=== PATIENT | female | born 1980 | race Caucasian/White ===

== ENCOUNTER 2016-10-12 15:23 | Emergency (ER) | payer OTHER ==
[2016-10-12 16:16] LABS: BASO % 0.6 % (0.1-1.2); EOS # 0.3 10_X3_uL (0.0-0.4); EOS % 4.3 % (0.7-5.8); GRAN # 3.5 10_X3_uL (1.6-6.1); GRAN % 52.1 % (34.0-71.1); HEMATOCRIT 41.3 % (34-45); HEMOGLOBIN 14.4 g/dL (11.2-15.7); LYMPH # 2.2 10_X3_uL (1.2-3.7); LYMPH % 31.8 % (19.3-51.7); MEAN CORPUSCULAR HEMOGLOBIN 32.7 pg (27.0-33.0); MEAN CORPUSCULAR HGB CONC 34.9 g/dL (32.0-36.0); MEAN CORPUSCULAR VOLUME 93.9 fL (79-95); MEAN PLATELET VOLUME 9.4 fl (7.5-11.5); MONO # 0.8 10_X3_uL (0.2-0.9); MONO % 11.2 % (4.7-12.5); PLATELET COUNT 290 x10_3/uL (182-369); RED CELL DISTRIBUTION WIDTH 12.6 % (11.7-14.4); WHITE BLOOD COUNT 6.8 x10_3/uL (4.0-10.0)
[2016-10-12 16:29] LABS: ALBUMIN 4.2 gm/dL (3.4-5.0); ALKALINE PHOSPHATASE 70 U/L (50-136); ALT/SGPT 78 U/L (3.5-33.9); AST/SGOT 47 U/L (7.04-26.96); BILIRUBIN,TOTAL 0.46 mg/dL (0.0-1.0); BLOOD UREA NITROGEN 15 mg/dL (7-18); CALCIUM 9.1 mg/dL (8.7-10.7); CARBON DIOXIDE 28 mmol/L (21-32); CREATINE KINASE 81 U/L (21-215); CREATININE 0.5 mg/dL (0.6-1.3); GLUCOSE,RANDOM 91 mg/dL (70-99); POTASSIUM 3.4 mmol/L (3.5-5.1); SODIUM 141 mmol/L (136-145); TOTAL PROTEIN 7.2 gm/dL (6.4-8.2)
[2016-10-12 16:31] LABS: PARTIAL THROMBOPLASTIN TIME 23.1 SECONDS (21.3-29.3); PROTHROMBIN TIME (PATIENT) 10.4 SECONDS (9.9-11.1)
== END 2016-10-12 18:07 | disposition home or self-care (01) ==
LOC: ER 15:23
PROVIDERS: Emergency Medicine
DX: R07.89 Other chest pain (principal); E87.6 Hypokalemia; F31.9 Bipolar disorder, unspecified; J44.9 Chronic obstructive pulmonary disease, unspecified; Z90.49 Acquired absence of other specified parts of digestive tract; R42 Dizziness and giddiness; Z88.0 Allergy status to penicillin; Z79.899 Other long term (current) drug therapy
CPT/HCPCS: 36415; 70450; 71020; 80053; 80307; 81025; 82550; 82553; 85025; 85610; 85730; 93005; 99070; 99285-25